=== PATIENT | male | born 1960 | race Caucasian/White ===

== ENCOUNTER → 2020-12-31 | Outpatient (CLI) | payer MEDICARE ==
--- NOTE | 2020-12-31 13:49 | Diagnostic Imaging Report ---
INDICATION: Knee pain. COMPARISON: None. FINDINGS: Three views of the left knee joint demonstrate no acute fracture or dislocation. No focal osseous lesions are seen. No significant joint effusion is seen. The surrounding soft tissue structures are unremarkable. There are no radiopaque foreign bodies. IMPRESSION: 1. No acute fractures or dislocations of the left knee joint. Dictated by: Dictated on workstation # [id number]
--- NOTE | 2020-12-31 13:58 | Diagnostic Imaging Report ---
INDICATION: Knee pain. COMPARISON: None. FINDINGS: Three views of the right knee joint demonstrate no acute fracture or dislocation. No focal osseous lesions are seen. No significant joint effusion is seen. The surrounding soft tissue structures are unremarkable. There are no radiopaque foreign bodies. IMPRESSION: 1. No acute fractures or dislocations of the right knee joint. Dictated by: Dictated on workstation # [id number]
--- NOTE | 2020-12-31 14:03 | Diagnostic Imaging Report ---
INDICATION: Pain. COMPARISON: None FINDINGS: Multiple radiographic views of the left shoulder were obtained. There is no acute fracture or dislocation. The osseous structures are intact. Joint spaces are maintained. No unexpected radiopaque foreign bodies are seen. Included portions of the left hemithorax are clear. IMPRESSION: 1. No acute fracture or dislocation in the left shoulder. Dictated by: Dictated on workstation # [id number]
== END ==
LOC: RAD FS 13:03
PROVIDERS: ATTEND Nurse Practitioner
DX: S91.301A Unspecified open wound, right foot, initial encounter (principal); L03.818 Cellulitis of other sites; M25.512 Pain in left shoulder; M25.561 Pain in right knee
CPT/HCPCS: 73030; 73562

== ENCOUNTER 2021-09-03 12:38 | Emergency (ER) | payer MEDICARE ==
[~2021-09-03] VITALS: Ht 190.5 cm; Wt 120.0 kg
[2021-09-03 12:55] VITALS: BP 149/70
--- NOTE | 2021-09-03 12:58 | ED Lower Extremity ---
General Chief Complaint: Lower Extremity Stated Complaint: RT FOOT INJ Source: patient Exam Limitations: no limitations History of Present Illness Date Seen by Provider: Sep 03, 2021 Time Seen by Provider: 12:41 Initial Comments 61-year-old male with past medical history of COPD, hypertension, hyperlipidemia coming in due to right foot pain. Midnight last night 2 dogs were in a fight and he has slippers on and was trying to separate them with his feet by kicking them. The dog moved, he missed, and hit something wooden. He had severe, sharp, constant pain in his right third toe radiating up his foot since then. Nothing seems to make it better. Worse when he tries to walk on it. He noticed some bruising this morning. Otherwise denying any other acute complaints Allergies and Home Medications Allergies Coded Allergies: aspirin (Verified Allergy, Unknown, 09/03/21) erythromycin base (Verified Allergy, Unknown, 09/03/21) ibuprofen (Verified Allergy, Unknown, 09/03/21) Patient Home Medication List Home Medication List Reviewed: Yes Review of Systems Constitutional: No chills EENTM: No blurred vision Respiratory: No cough Cardiovascular: No chest pain Gastrointestinal: no symptoms reported Genitourinary: no symptoms reported Musculoskeletal: joint pain Skin: no symptoms reported Psychiatric/Neurological: No Symptoms Reported All Other Systems Reviewed Negative Unless Noted: Yes Past Tagngtp-Eeospr-Exsjbd Hx Patient Social History Tobacco Use?: Yes Tobacco type used: Cigars Substance use?: No Alcohol Use?: No Past Medical History Surgeries: Yes Joint Replacement (bilateral hips) Physical Exam Vital Signs Vital Signs - First Documented 09/03/21 12:55 Temp 36.7 Pulse 90 Resp 18 B/P (MAP) 149/70 (96) Pulse Ox 97 O2 Delivery Room Air Capillary Refill : Height, Weight, BMI Height: '" Weight: lbs. oz. kg; BMI Method: General Appearance: WD/WN, no apparent distress HEENT: PERRL/EOMI, normal ENT inspection, pharynx normal Neck: non-tender, full range of motion, supple, normal inspection Cardiovascular: regular rate, rhythm, no edema, no murmur Respiratory: chest non-tender, lungs clear, normal breath sounds, no respiratory distress, no accessory muscle use Gastrointestinal: normal bowel sounds, non tender, soft; No distended, No guarding Hips: bilateral hip non-tender, bilateral hip normal inspection, bilateral hip normal range of motion, bilateral hip no evidence of injury Legs: bilateral leg non-tender, bilateral leg normal inspection, bilateral leg normal range of motion, bilateral leg no evidence of injury Knees: bilateral knee non-tender, bilateral knee normal inspection, bilateral knee normal range of motion, bilateral knee no evidence of injury Ankles: bilateral ankle non-tender, bilateral ankle normal inspection, bilateral ankle normal range of motion, bilateral ankle no evidence of injury Feet: left foot non-tender, left foot normal inspection, left foot normal range of motion, left foot no evidence of injury; right foot bone tenderness, right foot soft tissue tenderness (Pain and bruising along the right third toe radiating up the foot) Neurologic/Tendon: normal sensation, normal motor functions, normal tendon functions Neurologic/Psychiatric: no motor/sensory deficits, alert, normal mood/affect Skin: normal color, warm/dry Lymphatic: no adenopathy Progress/Results/Core Measures Results/Orders My Orders Orders - LILLIAM PANG MD Foot 3 View Right (09/03/21 12:58) Hydrocodone/Apap 5/325 Tablet (Lortab 5 (09/03/21 13:00) Medications Given in ED Current Medications Medications Dose Ordered Sig/Collins Route Start Time Stop Time Status Last Admin Dose Admin Acetaminophen/ Hydrocodone Bitart 1 ea ONCE ONCE PO 09/03/21 13:00 09/03/21 13:01 DC 09/03/21 13:05 1 EA Vital Signs/I&O 09/03/21 12:55 Temp 36.7 Pulse 90 Resp 18 B/P (MAP) 149/70 (96) Pulse Ox 97 O2 Delivery Room Air Progress Progress Note : Progress Note 61-year-old male with above history coming in due to right third toe pain most specifically. ABCs were intact and vitals were stable on presentation. Physical exam with bruising, swelling, tenderness along the right third toe. X- ray of the right foot ordered and interpreted by me showing no fracture or dislocation. He was given hydrocodone 5 mg for pain initially before x-ray was completed. It is always possible he has an occult fracture especially given the amount of swelling and tenderness. We will give him a postop shoe and have him follow-up with outpatient orthopedics. He was then discharged home in stable condition with strict return precautions Diagnostic Imaging Diagonstic Imaging: Xray Plain Films/CT/US/NM/MRI: other (right foot) Comments [facility]. [place], [place] NAME: MATT [facility] REC#: [id number] PT STATUS: REG ER : 1960 PHYSICIAN: LILLIAM PANG MD ADMIT DATE: 09/03/21/ER FS Draft Date of Exam:09/03/21 FOOT 3 VIEW RIGHT INDICATION: Right foot pain post injury AP, oblique, and lateral views of the right foot are obtained. No fracture or acute bony abnormality is seen. There are mild diffuse degenerative findings throughout the interphalangeal joints. There is plantar and posterior calcaneal spurring. There is no acute appearing abnormality. IMPRESSION: Mild diffuse degenerative findings with no acute appearing abnormality. Dictated on workstation # [id number] Dict: 09/03/21 1309 Trans: 09/03/21 1311 [facility] [id number] Interpreted by: KATHIE CHEN MD Electronically signed by: Departure Impression Primary Impression: Contusion of foot Qualified Codes: S90.31XA - Contusion of right foot, initial encounter Disposition: HOME, SELF-CARE Condition: Stable Departure-Patient Inst. Decision time for Depature: 13:25 Referrals: SIERRA JULIEN MD (PCP/Family) Primary Care Physician ERIC SPENCER Patient Instructions: Contusion (DC) Add. Discharge Instructions: Your x-ray was negative for anything broken, it is always possible something is broken that is too small to see on x-ray. Please follow-up with Jonah Spencer here in [facility] who is an orthopedist within the next couple weeks if you continue to have pain. Use the shoe we gave you to help with pain. Take Tylenol 1000 g every 6-8 hours as needed for pain. You can also ice it. Work/School Note: Work Release Form Date Seen in the Emergency Department: Sep 03, 2021 Return to Work: Sep 06, 2021 Restrictions: No Restrictions LILLIAM PANG MD Sep 03, 2021 12:58
[2021-09-03] MEDS ORDERED: HYDROcodone/APAP 5 MG/325 MG (LORTAB) TAB PO ONE (13:00)
--- NOTE | 2021-09-03 13:12 | Diagnostic Imaging Report ---
INDICATION: Right foot pain post injury AP, oblique, and lateral views of the right foot are obtained. No fracture or acute bony abnormality is seen. There are mild diffuse degenerative findings throughout the interphalangeal joints. There is plantar and posterior calcaneal spurring. There is no acute appearing abnormality. IMPRESSION: Mild diffuse degenerative findings with no acute appearing abnormality. Dictated by: Dictated on workstation # [id number]
== END 2021-09-03 13:29 | disposition home or self-care (01) ==
LOC: EDUNIT# 12:38 → ER FS 12:40
DX: S90.31XA Contusion of right foot, initial encounter (principal); I10 Essential (primary) hypertension; J44.9 Chronic obstructive pulmonary disease, unspecified; F17.290 Nicotine dependence, other tobacco product, uncomplicated; W22.8XXA Striking against or struck by other objects, initial encounter
CPT/HCPCS: 73630

== ENCOUNTER 2022-01-31 16:20 | Emergency (ER) | payer MEDICARE ==
--- NOTE | 2022-01-31 17:15 | ED Upper Extremity ---
General Chief Complaint: Bite-Animal/Human/Insect Stated Complaint: R INDEX FINGER-DOG BITE Source: patient History of Present Illness Date Seen by Provider: January 31, 2022 Time Seen by Provider: 16:30 Initial Comments Patient is a 61-year-old right-handed male who presents with a dog bite laceration to his right index finger. Patient was breaking up a fight between his dogs when he was bit in his distal right index finger with linear dog bites to flexor extensor surfaces of his distal index finger without nailbed or joint involvement. The bite occurred 1 hour prior to ED arrival. Patient's tetanus and the dog's rabies are up-to-date. Wound was washed extensively in the sink and bandaged prior to ED arrival. Patient is nondiabetic. Onset: just prior to arrival Pain/Injury Location: right 2nd finger Method of Injury: incised Modifying Factors: Improves With Other Allergies and Home Medications Allergies Coded Allergies: aspirin (Verified Allergy, Unknown, 09/03/21) erythromycin base (Verified Allergy, Unknown, 09/03/21) ibuprofen (Verified Allergy, Unknown, 09/03/21) Patient Home Medication List Home Medication List Reviewed: Yes Review of Systems Constitutional: see HPI Musculoskeletal: see HPI Past Vwnpbwb-Oufdyj-Zfwxje Hx Patient Social History Tobacco Use?: Yes Immunizations Up To Date First/Initial COVID19 Vaccinat: 12/16/20 Second COVID19 Vaccination Wai: 01/13/21 Past Medical History Surgeries: Yes Joint Replacement Physical Exam Vital Signs Capillary Refill : Height, Weight, BMI Height: '" Weight: lbs. oz. kg; 33.00 BMI Method: General Appearance: WD/WN, no apparent distress Hand: Right (right index finger with linear dog bites to flexor extensor surfaces of his distal index finger without nailbed or joint involvement. Bleeding is controlled. Wound edges are well approximated with no gapping) Departure Communication (Admissions) Right index finger dog bite. Laceration is actually well approximated. Wound was extensively washed prior to ED arrival and we cleaned and read bandaged in the emergency department. Primary repair by sutures not indicated at this time. First dose of antibiotics given. Typical wound care instructions provided. Return precautions reviewed. Patient verbalizes understanding agreement discharge instruction prior to departure. Impression Primary Impression: Infected dog bite of right index finger Disposition: HOME, SELF-CARE Condition: Stable Departure-Patient Inst. Decision time for Depature: 17:14 Referrals: SIERRA JULIEN MD (PCP/Family) Primary Care Physician Patient Instructions: Animal Bites (DC) Add. Discharge Instructions: Please keep wound clean covered and dry for the next 10 days. Apply topical antibiotics once daily and take oral antibiotics as directed. Follow-up with your PCP in 2 to 3 days for wound reevaluation. Return to the ED sooner if signs of infection. All discharge instructions reviewed with patient and/or family. Voiced understanding. Scripts Tramadol HCl (Tramadol HCl) 50 Mg Tablet 50 MG PO Q6H PRN for PAIN for 3 Days, #10 TAB 0 Refills Prov: PATRICIO HERMAN DO 01/31/22 Amoxicillin/Potassium Clav (Augmentin Xr 1,000-62.5 Tab) 1,000 Mg-62.5 Mg Tab.er.12h 1 EACH PO BID, #14 TAB Prov: PATRICIO HERMAN DO 01/31/22 PATRICIO HERMAN DO January 31, 2022 17:15
[2022-01-31] MEDS ORDERED: AMOX-356 PO (17:16)
[2022-01-31] MEDS ORDERED: TRM50T PO (17:16)
[2022-01-31] MEDS ORDERED: AUGMENTIN 875 MG TAB (AMOXICILLIN/CLAVULANATE) PO SCH (17:30)
[2022-01-31] MEDS ORDERED: ACETAMINOPHEN 500 MG TAB (TYLENOL) PO ONE (17:30)
[2022-01-31 17:39] VITALS: BP 125/76
== END 2022-01-31 17:38 | disposition home or self-care (01) ==
LOC: EDUNIT# 16:20 → ER FS 16:22
DX: S61.250A Open bite of right index finger without damage to nail, initial encounter (principal); L08.9 Local infection of the skin and subcutaneous tissue, unspecified; W54.0XXA Bitten by dog, initial encounter
CPT/HCPCS: 99283

== ENCOUNTER → 2022-04-05 | Outpatient (CLI) | payer MEDICARE, OTHER ==
[~2022-04-05] MED LIST: AMOX-356 PO; TRM50T PO
--- NOTE | 2022-04-05 11:06 | Diagnostic Imaging Report ---
PROCEDURE: CT chest without contrast. TECHNIQUE: Multiple contiguous axial images were obtained through the chest without the use of intravenous contrast. Auto Exposure Controls were utilized during the CT exam to meet ALARA standards for radiation dose reduction. INDICATION: Exertional dyspnea. FINDINGS: The lungs are well aerated and clear. No air trapping is seen. No interstitial infiltrates are noted. No evidence of bronchiectasis or bullous emphysema. No evidence of apical pleural scarring. No pleural effusion or pericardial effusion. No mediastinal or hilar adenopathy of pathologic size. No blastic or lytic bony changes. IMPRESSION: Normal CT chest without contrast. Dictated by: Dictated on workstation # [id number]
== END ==
LOC: CARDFS 09:16
PROVIDERS: ATTEND Internal Medicine Critical Care Medicine
DX: J44.9 Chronic obstructive pulmonary disease, unspecified (principal); J30.1 Allergic rhinitis due to pollen; K21.9 Gastro-esophageal reflux disease without esophagitis; Z87.891 Personal history of nicotine dependence
CPT/HCPCS: 71250; 93306